=== PATIENT | female | born 1985 | race Hispanic/Latino ===

== ENCOUNTER 2018-09-06 13:10 | Emergency (ER) | payer BC ==
[2018-09-06 13:20] VITALS: BP 106/70; PULSE 87; RESP 18; TEMP 98.3; O2SAT 97
--- NOTE | 2018-09-06 13:57 | ED PDOC ---
Lower Extremity Pain/Injury Time Seen by Provider: 09/06/18 13:22 Chief Complaint (Nursing): Lower Extremity Problem/Injury Chief Complaint (Provider): Lower Extremity Problem/Injury History Per: Patient History/Exam Limitations: no limitations Onset/Duration Of Symptoms: Hrs Current Symptoms Are (Timing): Still Present Additional Complaint(s): Yumiko Calderon is a 32 year old female with a past medical history of hypothyroidism, gestational diabetes, and anemia who is presenting to the ED for evaluation of posterior left knee pain onset earlier today. Patient states that she was walking and started feeling the pain, so she called her OB who sent her for evaluation to rule out DVT. Patient offers no other medical complaints at this time. PMD: Brody Chambers Past Medical History Reviewed: Historical Data, Nursing Documentation, Vital Signs Vital Signs: Last Vital Signs Temp 98.3 F 09/06/18 13:17 Pulse 87 09/06/18 13:17 Resp 18 09/06/18 13:17 BP 106/70 09/06/18 13:17 Pulse Ox 97 09/06/18 13:17 - Medical History PMH: Anemia, Diabetes (gestational), Hypothyroidism - Surgical History Surgical History: No Surg Hx - Family History Family History: States: Unknown Family Hx - Social History Current smoker - smoking cessation education provided: No Alcohol: None Drugs: Denies - Allergies Allergies/Adverse Reactions: Allergies Allergy/AdvReac Type Severity Reaction Status Date / Time No Known Allergies Allergy Verified 09/06/18 13:16 Review of Systems ROS Statement: Except As Marked, All Systems Reviewed And Found Negative Musculoskeletal: Positive for: Leg Pain (posterior knee pain) Physical Exam - Reviewed Nursing Documentation Reviewed: Yes Vital Signs Reviewed: Yes - Physical Exam Appears: Positive for: Well, Non-toxic, No Acute Distress Head Exam: Positive for: ATRAUMATIC, NORMAL INSPECTION, NORMOCEPHALIC Extremity: Positive for: Other (distal pulses intact; patient reports pain to posterior knee with dorsiflexion of foot ). Negative for: Pedal Edema, Calf Tenderness, Swelling Neurologic/Psych: Positive for: Alert, Oriented. Negative for: Motor/Sensory Deficits - ECG O2 Sat by Pulse Oximetry: 97 (RA) Pulse Ox Interpretation: Normal Medical Decision Making Medical Decision Making: Time: :27 Plan: --Ultrasound Lower Extremity US (-) Scribe Attestation: Documented by Jada Iniguez, acting as a scribe for Lou Saavedra PA-C. Provider Scribe Attestation: All medical record entries made by the Scribe were at my direction and personally dictated by me. I have reviewed the chart and agree that the record accurately reflects my personal performance of the history, physical exam, medical decision making, and the department course for this patient. I have also personally directed, reviewed, and agree with the discharge instructions and disposition. Disposition - Clinical Impression Clinical Impression: Left leg pain - Disposition Referrals: Brody Chambers MD [Staff Provider] - Disposition: Routine/Home Disposition Time: 14:32 Condition: GOOD Instructions: Muscle and Bone Pain (DC) Forms: [employer] (German)
--- NOTE | 2018-09-06 14:21 | US ---
Date of service: 09/06/2018 PROCEDURE: Left lower extremity venous duplex Doppler. HISTORY: left leg pain COMPARISON: None available. TECHNIQUE: Common femoral, superficial femoral, popliteal and posterior tibial veins were evaluated. Flow was assessed with color Doppler, compressibility, assessment of phasic flow and augmentation response. FINDINGS: COMMON FEMORAL VEIN: Unremarkable. SUPERFICIAL FEMORAL VEIN: Unremarkable. POPLITEAL VEIN: Unremarkable. POSTERIOR TIBIAL VEIN: Unremarkable. OTHER FINDINGS: None. IMPRESSION: No evidence of deep venous thrombosis in the left lower extremity.
== END 2018-09-06 14:32 | disposition home or self-care (01) ==
LOC: H.ER 13:10
DX: O26.90 Pregnancy related conditions, unspecified, unspecified trimester (principal); M79.605 Pain in left leg; E03.9 Hypothyroidism, unspecified; O09.90 Supervision of high risk pregnancy, unspecified, unspecified trimester